=== PATIENT | male | born 1940 | race Caucasian/White ===

== ENCOUNTER 2017-04-09 11:24 | Inpatient (IN) | payer OTHER ==
[~2017-04-09] VITALS: Ht 182.9 cm; Wt 102.3 kg
[2017-04-09] MEDS ORDERED: KETOROLAC 15 MG INJ IV STA (11:42)
[2017-04-09] MEDS ORDERED: ONDANSETRON 4 MG INJ IV STA (11:42)
[2017-04-09] MEDS ORDERED: SOD CHLORIDE 0.9% 500 ML IV STA (11:42)
--- NOTE | 2017-04-09 12:20 | ERA ---
ER Documentation Chief Complaint Date/Time DATE: 04/09/17 TIME: 12:01 Chief Complaint R LOWER ABD PAIN SINCE LAST NIGHT. NO VOMITING, NAUSEA NO DYSURIA HPI This is a 77-year-old male with a history of hypertension in the past, recently stopped on blood pressure medicines as his blood pressure has normalized recently, type 2 diabetes, end-stage renal disease status post a recent left wrist AV fistula, scheduled for dialysis in the future, multiple previous kidney stones on the right side who is now presenting with acute onset sharp stabbing aching right flank and right lower quadrant abdominal pain beginning at 2 AM this morning with nausea. He rates it at 2/10 when he doesn't move but it increases with movement and palpation. The patient does still urinate at baseline, but he states that he has not urinated since the pain started. He has not noticed any blood in his urine. The patient does endorse heartburn as well, a burning sensation in his epigastrium. The patient does not endorse any left-sided chest pain or pain radiating to the arms or back or neck. The patient does not have a history of heart attack. The patient denies feeling sick otherwise. He has no fever or chills. He has no headache or vision changes. He has no trouble breathing. He has not had any changes to bowel movements. ROS All systems reviewed and are negative except as per history of present illness. Medications Home Meds Reported Medications Hydralazine Hcl* (Hydralazine Hcl*) 25 Mg Tab, 25 MG PO BID Y for ELEVATED BLOOD PRESSURE, #120 TAB 04/09/17 Aspirin (Low Dose Aspirin) 81 Mg Tablet.dr, 81 MG PO DAILY, #30 TAB 04/09/17 Terazosin Hcl* (Terazosin Hcl*) 10 Mg Capsule, 10 MG PO HS, CAP 04/09/17 Finasteride* (Finasteride*) 5 Mg Tablet, 5 MG PO DAILY, TAB 04/09/17 Allopurinol* (Allopurinol*) 300 Mg Tablet, 150 MG PO DAILY, TAB 04/09/17 Calcitriol* (Rocaltrol*) 0.25 Mcg Capsule, 0.25 MCG PO DAILY, CAP 04/09/17 Cholecalciferol (Vitamin D3) 5,000 Unit Tablet, 5000 UNIT PO DAILY, TAB 04/09/17 Pravastatin Sodium* (Pravastatin Sodium*) 80 Mg Tablet, 80 MG PO HS, TAB 04/09/17 Glipizide* (Glipizide*) 5 Mg Tablet, 5 MG PO AC BREAKFAST, TAB 04/09/17 Amlodipine Besylate* (Norvasc*) 5 Mg Tablet, 5 MG PO DAILY, TAB 04/09/17 Allergies Allergies: Coded Allergies: No Known Allergy (Unverified , 04/09/17) PMhx/Soc Hx Cardiac Disorders: Yes (HTN, HIGH CHOLETEROL, AFIB) Hx Miscellaneous Medical Probl: Yes (DM, DIALYSIS, KIDNEY STONE) Hx Alcohol Use: No Hx Substance Use: No Hx Tobacco Use: No Smoking Status: Never smoker FmHx Family History: diabetes Physical Exam Vitals Vital Signs Date Time Temp Pulse Resp B/P Pulse Ox O2 Delivery O2 Flow Rate FiO2 04/09/17 16:48 110 20 120/62 100 Room Air 04/09/17 16:00 103 20 108/66 100 Room Air 04/09/17 12:23 104 20 104/62 99 04/09/17 11:29 98.6 110 20 87/59 99 Physical Exam Const: NAD Head: Atraumatic Eyes: Normal Conjunctiva ENT: Normal External Ears, Nose and Mouth. Neck: Full range of motion..~ No meningismus. Resp: Clear to auscultation bilaterally Cardio: Regular rhythm, tachycardic. no murmurs Abd: Soft, non distended. RLQ tenderness. Normal bowel sounds Skin: No petechiae or rashes Back: No midline tenderness. right sided flank tenderness Ext: No cyanosis, or edema Neur: Awake and alert Psych: Normal Mood and Affect Result Diagram: 04/09/17 1805 04/09/17 1142 Results 24 hrs Laboratory Tests Test 04/09/17 11:42 04/09/17 18:05 White Blood Count 11.910^3/ul 12.410^3/ul Red Blood Count 2.5210^6/ul 2.3110^6/ul Hemoglobin 7.7g/dl 7.0g/dl Hematocrit 24.3% 21.5% Mean Corpuscular Volume 96.4fl 93.1fl Mean Corpuscular Hemoglobin 30.6pg 30.3pg Mean Corpuscular Hemoglobin Concent 31.7g/dl 32.6g/dl Red Cell Distribution Width 15.4% 15.6% Platelet Count 45554^3/UL 45172^3/UL Mean Platelet Volume 10.8fl 11.2fl Neutrophils % 92.1% 84.9% Lymphocytes % 3.1% 5.8% Monocytes % 4.1% 8.7% Eosinophils % 0.0% 0.0% Basophils % 0.1% 0.1% Nucleated Red Blood Cells % 0.0/100WBC 0.0/100WBC Neutrophils # (Manual) 11.010^3/ul 10.510^3/ul Lymphocytes # 0.410^3/ul 0.710^3/ul Monocytes # 0.510^3/ul 1.110^3/ul Eosinophils # 0.010^3/ul 0.010^3/ul Basophils # 0.010^3/ul 0.010^3/ul Nucleated Red Blood Cells # 0.010^3/ul 0.010^3/ul Sodium Level 145mmol/L Potassium Level 5.2mmol/L Chloride Level 109mmol/L Carbon Dioxide Level 14mmol/L Anion Gap 27 Blood Urea Nitrogen 81mg/dl Creatinine 5.62mg/dl Glucose Level 261mg/dl Lactic Acid Level 2.3mmol/L Calcium Level 9.5mg/dl Total Bilirubin 0.1mg/dl Direct Bilirubin 0.00mg/dl Indirect Bilirubin 0.1mg/dl Aspartate Amino Transf (AST/SGOT) 17IU/L Alanine Aminotransferase (ALT/SGPT) 33IU/L Alkaline Phosphatase 53IU/L Troponin I 0.709ng/ml Total Protein 5.6g/dl Albumin 3.1g/dl Globulin 2.50g/dl Albumin/Globulin Ratio 1.24 Lipase 88U/L Current Medications Medications (Trade) Dose Ordered Sig/Chantale Route PRN Reason Start Time Stop Time Status Last Admin Dose Admin Sodium Chloride (NS) 500 ml @ 500 mls/hr Q1H STAT IV 04/09/17 11:42 04/09/17 12:41 DC 04/09/17 12:11 Ondansetron HCl (Zofran Inj) 4 mg ONCE STAT IV 04/09/17 11:42 04/09/17 11:46 DC 04/09/17 12:11 Ketorolac Tromethamine 15 mg 15 mg ONCE STAT IV 04/09/17 11:42 04/09/17 11:46 DC 04/09/17 12:11 Sodium Chloride (NS) 1,000 ml @ 1,000 mls/hr Q1H ONCE IV 04/09/17 15:00 04/09/17 15:59 DC 04/09/17 15:03 Ondansetron HCl (Zofran Inj) 4 mg ER BRIDGE PRN IV NAUSEA AND/OR VOMITING 04/09/17 18:00 04/10/17 17:59 Acetaminophen (Tylenol Tab) 650 mg ER BRIDGE PRN PO MILD PAIN/FEVER 04/09/17 18:00 04/10/17 17:59 Procedures/MDM The patient's presenting with abdominal pain and requires further workup. He has a history of kidney stones and notes that this pain is similar to his past kidney stones. He does endorse having an ultrasound recently that was unremarkable to his kidneys. The patient's blood work was obtained and reviewed. The patient's CBC showed leukocytosis with shift. The patient is afebrile, and I am not convinced of a systemic infection at this time. That said, the patient was initially tachycardic and hypotensive. Blood culture and urine culture was sent off for further evaluation, but I do not intend to start antibiotics immediately. The patient received 1.5 L of normal saline in the emergency department. I did not want to give him 30ml/kg given his ESRD and oliguria. The patient is also anemic, which I am most concerned about. He does not have any symptoms of anemia and he denies any bleeding in his urine or stool. He has no other labs for comparison. He has CKD, which may be part of his anemia. The patient's CMP revealed an elevated CR between 5-6. This is reportedly around his baseline. He does have a mild hyperkalemia that does not need to be emergently treated. The patient also has a metabolic acidosis, which may be associated with his renal pathology. The patient's troponin was elevated, but the patient does not have signs of cardiac pathology. I do anticipate that this is related to his chronic kidney disease. He is also hyperglycemic at 261. I have lower suspicion for DKA given more likely etiologies of his anion gap, but this may be monitored in the hospital. He does have an anion gap metabolic acidosis, some of which may be attributed to a mildly elevated lactic acid. The patient's urinalysis was ordered, but the patient was unable to urinate for us in the emergency department and declined catheterization. EKG read by me: Rate/Rhythm: Regular rhythm, sinus tachycardia at 104 bpm Intervals: Normal [place]: Normal Impression:Sinus tachycardia, No evidence of ischemia or arrhythmia CT of the abdomen and pelvis was performed as the patient Reports that he has not been able to urinate since the pain started. He while he has a history of kidney stones, I am concerned that it could be resulting in obstruction. There is also still a possibility of appendicitis, as the patient has not had an appendectomy in the past. This will be evaluated as well. His CT was read by the radiologist as follows: PROCEDURE: CT Abdomen and Pelvis without contrast. CLINICAL INDICATION: Abdominal pain COMPARISON: None. FINDINGS: CT abdomen: There is mild bibasilar atelectasis. The heart size is normal. Small to mild pericardial effusion is noted. Coronary arterial calcifications are present. Gallbladder is surgically absent. Liver and biliary tree are unremarkable. Scattered pancreatic calcifications are noted, likely sequela of chronic pancreatitis. Indeterminate 17 mm cystic structure is seen arising from pancreatic head (3-75). No peripancreatic inflammatory stranding is identified. Spleen and adrenal glands are unremarkable. Right perinephric hematoma is identified, measuring approximately 12 x 7 x 7 cm (602-36). Right renal cyst is noted. There is moderate chronic atrophy of the left kidney. Indeterminate left renal cystic-appearing foci are noted. No urolithiasis or obstructive uropathy is identified. The stomach is mildly distended and fluid- filled, but otherwise grossly unremarkable. The aorta is of normal caliber. Aortic vascular calcifications are present. There is no retroperitoneal lymphadenopathy. The [place] hepatis region is clear. CT pelvis: No bowel obstruction, free intraperitoneal air or abscess is identified. The appendix is well visualized and normal. Scattered colonic diverticula are seen without diverticulitis. There is no colitis. Urinary bladder is grossly unremarkable. Prostate is moderately enlarged. No pelvic mass, free fluid or lymphadenopathy is identified. The surrounding osseous structures are remarkable for degenerative enthesopathy of the spine. No osteolytic or osteoblastic lesion is detected. IMPRESSION: 1. Right perinephric hematoma is identified, measuring approximately 12 cm in maximal dimension. Underlying right renal mass/neoplasm is not confidently excluded. Consider contrast enhanced CT for further evaluation, as clinically warranted. 2. There is chronic moderate atrophy of the left kidney. Indeterminate cystic- appearing foci are seen in the left kidney, incompletely evaluated without IV contrast. Again, contrast enhanced CT may be useful for further characterization. 3. Small to mild pericardial effusion is noted. 4. Coronary arterial and aortoiliac atherosclerotic calcifications are present. 5. Gallbladder is surgically absent. 6. Scattered pancreatic calcifications are seen, likely sequela of chronic pancreatitis. There is no CT evidence of acute pancreatitis. Indeterminate 17 mm cystic structure is seen in the pancreatic head - CT or MRI followup in 12 months is recommended to assess interval stability. 7. Scattered colonic diverticula are seen without diverticulitis. 8. Prostate is moderately enlarged - correlate with PSA level. .Alex Kaplan MD, MD Date Time Electronically viewed and signed by .Alex Kaplan MD, MD on 04/09/2017 14: 50 The patient was given IV fluids, Toradol, and Zofran with improvement of his symptoms and vitals. However, while the patient's blood pressure improved with a systolic greater than 100, the patient still mildly tachycardic. At this time I am concerned of symptomatic anemia, in the setting of a large right perinephric hematoma. In the setting of anemia and tachycardia, I am concerned of bleeding around his right kidney causing him pain that needs to be addressed. The patient would like to be transferred to [place] where all of his physicians and care has taken place in the past. In speaking with the [place] physician, he provided me the information that his previous hemoglobin was between 11 and 12 approximately 2 days ago. Given this information, in the setting of tachycardia and a possible bleeding source of a perinephric hematoma, I am worried about symptomatic anemia related to acute blood loss. An additional hgb was checked imemdiately prior to blood administration and found to be 7. I do not feel at this time that he is stable for transfer. As stated above, my suspicion is decreased for an infection given the acute onset of his symptoms and how he appears. That said, if he continues to decompensate despite blood resuscitation, or if his labs worsen, I would have a low threshold for initiating antibiotics. The patient's vital signs did improve after fluid resuscitation. He will be admitted to our hospital for further evaluation. He will need to be evaluated by nephrology or potentially surgery while in the hospital. This will be deferred to the hospital team. Departure Diagnosis: Primary Impression: Abdominal pain Qualified Code: R10.31 - Right lower quadrant abdominal pain Additional Impressions: Perinephric hematoma Anemia Qualified Code: D64.9 - Anemia, unspecified type Thrombocytopenia Chronic kidney disease Qualified Code: N18.5 - Stage 5 chronic kidney disease not on chronic dialysis Hyperkalemia Metabolic acidosis Condition: Serious SHANIA GAMINO MD Apr 09, 2017 12:12
[2017-04-09 12:33] LABS: ABNORMAL IP MESSAGE 1; BASOPHILS % 0.1 % (0.0-2.0); HEMATOCRIT 24.3 % (42.0-52.0); HEMOGLOBIN 7.7 g/dl (14.0-18.0); LYMPHOCYTES # 0.4 10^3/ul (0.8-2.9); LYMPHOCYTES % 3.1 % (15.0-51.0); MEAN CORPUSCULAR HEMOGLOBIN 30.6 pg (29.0-33.0); MEAN CORPUSCULAR HGB CONC 31.7 g/dl (32.0-37.0); MEAN CORPUSCULAR VOLUME 96.4 fl (82.0-101.0); MEAN PLATELET VOLUME 10.8 fl (7.4-10.4); MONOCYTE # 0.5 10^3/ul (0.3-0.9); MONOCYTES % 4.1 % (0.0-11.0); NEUTROPHILS % 92.1 % (39.0-77.0); PLATELET COUNT 133 10^3/UL (140-415); POSITIVE DIFF @See below; RED BLOOD COUNT 2.52 10^6/ul (4.70-6.10); RED CELL DISTRIBUTION WIDTH 15.4 % (11.5-14.5); WHITE BLOOD COUNT 11.9 10^3/ul (4.8-10.8)
[2017-04-09 12:57] LABS: ALBUMIN 3.1 g/dl (3.3-4.9); ALBUMIN/GLOBULIN RATIO 1.24; BILIRUBIN,INDIRECT 0.1 mg/dl (0-1.1); BILIRUBIN,TOTAL 0.1 mg/dl (0.2-1.3); CALCIUM 9.5 mg/dl (8.4-10.2); CREATININE 5.62 mg/dl (0.61-1.24); POTASSIUM 5.2 mmol/L (3.5-5.1); TOTAL PROTEIN 5.6 g/dl (6.1-8.1)
[2017-04-09 13:12] LABS: TROPONIN-I 0.709 ng/ml (0.00-0.12)
[2017-04-09] MEDS ORDERED: PRAV80TA27 PO (13:15)
[2017-04-09] MEDS ORDERED: GLIP5TAB13 PO (13:15)
[2017-04-09] MEDS ORDERED: AMLO5TAB4 PO (13:15)
[2017-04-09] MEDS ORDERED: CALC0.255 PO (13:16)
[2017-04-09] MEDS ORDERED: CHOL500010 PO (13:16)
[2017-04-09] MEDS ORDERED: TERA10CA42 PO (13:17)
[2017-04-09] MEDS ORDERED: ALLO300T2 PO (13:17)
[2017-04-09] MEDS ORDERED: FINA5TAB4 PO (13:17)
[2017-04-09] MEDS ORDERED: ASPI-664 PO (13:18)
[2017-04-09] MEDS ORDERED: HYDR-3671 PO (13:18)
--- NOTE | 2017-04-09 14:51 | RADRPT ---
PROCEDURE: CT Abdomen and Pelvis without contrast. CLINICAL INDICATION: Abdominal pain TECHNIQUE: CT of the abdomen and pelvis was performed on a multi-detector scanner without IV contr ast. Coronal and sagittal images were reformatted from the axial data set. One or more of the foll owing dose reduction techniques were used: automated exposure control, adjustment of the mA and/or k V according to patient size, use of iterative reconstruction technique. CTDI = 17.86 mGy. DLP = 133 7.25 mGy-cm. COMPARISON: None. FINDINGS: CT abdomen: There is mild bibasilar atelectasis. The heart size is normal. Small to mild pericardial effusion is noted. Coronary arterial calcifications are present. Gallbladder is surgically absent. Liver a nd biliary tree are unremarkable. Scattered pancreatic calcifications are noted, likely sequela of chronic pancreatitis. Indeterminate 17 mm cystic structure is seen arising from pancreatic head (3- 75). No peripancreatic inflammatory stranding is identified. Spleen and adrenal glands are unremar kable. Right perinephric hematoma is identified, measuring approximately 12 x 7 x 7 cm (602-36). Right ian al cyst is noted. There is moderate chronic atrophy of the left kidney. Indeterminate left renal c ystic-appearing foci are noted. No urolithiasis or obstructive uropathy is identified. The stomach is mildly distended and fluid-filled, but otherwise grossly unremarkable. The aorta is of normal caliber. Aortic vascular calcifications are present. There is no retroperit mendez lymphadenopathy. The [place] hepatis region is clear. CT pelvis: No bowel obstruction, free intraperitoneal air or abscess is identified. The appendix is well visua lized and normal. Scattered colonic diverticula are seen without diverticulitis. There is no colit is. Urinary bladder is grossly unremarkable. Prostate is moderately enlarged. No pelvic mass, christi e fluid or lymphadenopathy is identified. The surrounding osseous structures are remarkable for degenerative enthesopathy of the spine. No os teolytic or osteoblastic lesion is detected. IMPRESSION: 1. Right perinephric hematoma is identified, measuring approximately 12 cm in maximal dimension. U nderlying right renal mass/neoplasm is not confidently excluded. Consider contrast enhanced CT for further evaluation, as clinically warranted. 2. There is chronic moderate atrophy of the left kidney. Indeterminate cystic-appearing foci are s een in the left kidney, incompletely evaluated without IV contrast. Again, contrast enhanced CT may be useful for further characterization. 3. Small to mild pericardial effusion is noted. 4. Coronary arterial and aortoiliac atherosclerotic calcifications are present. 5. Gallbladder is surgically absent. 6. Scattered pancreatic calcifications are seen, likely sequela of chronic pancreatitis. There is no CT evidence of acute pancreatitis. Indeterminate 17 mm cystic structure is seen in the pancreati c head - CT or MRI followup in 12 months is recommended to assess interval stability. 7. Scattered colonic diverticula are seen without diverticulitis. 8. Prostate is moderately enlarged - correlate with PSA level. RPTAT: HH .Alex Kaplan MD, MD Date Time Electronically viewed and signed by .Aelx Kaplan MD, on 04/09/2017 14:50 .R/
[2017-04-09] MEDS ORDERED: SOD CHLORIDE 0.9% 1,000 ML IV ONE (15:00)
[2017-04-09] MEDS ORDERED: ACETAMINOPHEN 325 MG TAB PO PRN (18:00)
[2017-04-09] MEDS ORDERED: ONDANSETRON 4 MG INJ IV PRN ×2 (18:00→20:30)
[2017-04-09 18:22] LABS: BASOPHILS % 0.1 % (0.0-2.0); HEMATOCRIT 21.5 % (42.0-52.0); LYMPHOCYTES # 0.7 10^3/ul (0.8-2.9); LYMPHOCYTES % 5.8 % (15.0-51.0); MEAN CORPUSCULAR HEMOGLOBIN 30.3 pg (29.0-33.0); MEAN CORPUSCULAR HGB CONC 32.6 g/dl (32.0-37.0); MEAN CORPUSCULAR VOLUME 93.1 fl (82.0-101.0); MEAN PLATELET VOLUME 11.2 fl (7.4-10.4); MONOCYTE # 1.1 10^3/ul (0.3-0.9); MONOCYTES % 8.7 % (0.0-11.0); NEUTROPHILS % 84.9 % (39.0-77.0); PLATELET COUNT 126 10^3/UL (140-415); RED BLOOD COUNT 2.31 10^6/ul (4.70-6.10); RED CELL DISTRIBUTION WIDTH 15.6 % (11.5-14.5); WHITE BLOOD COUNT 12.4 10^3/ul (4.8-10.8)
[2017-04-09 19:45] VITALS: BP 110/57; RESP 18
[2017-04-09 19:50] VITALS: Ht 182.9 cm; Wt 102.3 kg
[2017-04-09 20:23] VITALS: PULSE 109; PULSE 127
[2017-04-09] MEDS ORDERED: morphine 2 MG INJ IV PRN (20:30)
[2017-04-09] MEDS ORDERED: hydrALAzine 20 MG INJ IV PRN (20:30)
[2017-04-09] MEDS ORDERED: DEXTROSE 50% 50 ML SYRINGE IV PRN ×2 (21:30)
[2017-04-09] MEDS ORDERED: GLUCAGON 1 MG INJ IM PRN (21:30)
[2017-04-09] MEDS ORDERED: GLUCOSE GEL 15 GRAM TUBE PO PRN ×2 (21:30)
[2017-04-09] MEDS ORDERED: GLUCOSE GEL 15 GRAM TUBE BUCCAL PRN (21:30)
[2017-04-09] MEDS: ATORVASTATIN 40 MG TAB PO SCH (22:44)
[2017-04-09] MEDS: FINASTERIDE 5 MG TAB PO SCH (22:45)
[2017-04-09] MEDS: INSULIN ASPART [NOVOLOG] 3 ML PEN SC SCH (22:55)
[2017-04-09] MEDS: INSULIN GLARGINE [LANtus] 3 ML PEN SC SCH (22:56)
[2017-04-10] VITALS (14 sets, daily range): BP systolic 115–151; BP diastolic 60–75; PULSE 94–181; RESP 19–20
[2017-04-10] MEDS ORDERED: ACCU-CHEK XX SCH (02:00)
[2017-04-10] MEDS: ACCU-CHEK XX SCH ×2 (02:12→23:46)
[2017-04-10] MEDS ORDERED: ACETAMINOPHEN 325 MG TAB PO ONE ×2 (06:45→08:30)
[2017-04-10] MEDS ORDERED: DIPHENHYDRAMINE 25 MG CAP PO ONE (06:45)
--- NOTE | 2017-04-10 07:06 | HP ---
Date/Time of Note Date/Time of Note DATE: 04/10/17 TIME: 06:51 Assessment/Plan VTE Prophylaxis VTE Prophylaxis Intervention: SCD's Lines/Catheters IV [facility] Urinary Cath still in place: No Assessment/Plan Assessment/Plan 1. Symptomatic anemia: No definitive clear etiology, but could be from the right perinephric hematoma -will transfuse PRBCs -Follow-up H&H closely -Check FOBT -GI consult 2. Right perinephric hematoma -Urology and nephrology consult -Per radiology, we need to get a CT with IV contrast since a mass/neoplasm is not excluded, however given his kidney function, I will await until he is further evaluated before obtaining one now 3. End-stage renal disease -Patient has an AV fistula but dialysis has not been initiated yet -will place a nephrology consult 4. Positive troponin: Likely demand ischemia as a result of anemia -Trend troponin -2D echo and cardiology consult 5. Type 2 diabetes -Check A1c -Insulin while in-house 6. History of hypertension: Actually presented with hypotension -Hold home medications for now 7. Dyslipidemia -Continue statin 8. BPH -Continue home med HPI/ROS Admit Date/Time Admit Date/Time Apr 09, 2017 at 17:52 Hx of Present Illness This is a 77-year-old male with a history of hypertension, type 2 diabetes, dyslipidemia, BPH, end-stage renal disease, awaiting initiation of dialysis. Patient presented to the ER complaining of right lower quadrant abdominal pain and generalized weakness. Pain started about 3 days ago and has been progressively getting worse. He denied chest pain, shortness of breath, nausea/ vomiting, hematemesis, dark stool or bright red blood per rectum. When he presented to the ER, he was hypotensive with blood pressure of 87/59, heart rate 110. Labs shows a hemoglobin of 7.7, WBC almost 12,000, BUN 81, creatinine 5.62, glucose 261, lactic acid 2.3, potassium 5.2. His first troponin is elevated at 0.709. EKG was no ST-T wave abnormalities. PMH/Family/Social Social History Smoking Status: Never smoker Exam/Review of Systems Vital Signs Vitals Vital Signs Date Time Temp Pulse Resp B/P Pulse Ox O2 Delivery O2 Flow Rate FiO2 04/10/17 05:55 99.7 112 20 119/65 96 Room Air Exam Constitutional: other (Sleepy but arousable) Head: atraumatic, normocephalic Eyes: EOMI, PERRL Respiratory: clear to auscultation, normal air movement Cardiovascular: other (Tachycardic with regular rhythm) Gastrointestinal: other (Tenderness in the right side of the abdomen), soft Extremities: normal pulses Labs Result Diagram: 04/09/17 1805 04/09/17 1142 Medications Medications Current Medications Allopurinol (Zyloprim) 150 mg DAILY PO ; Start 04/10/17 at 09:00 Amlodipine Besylate (Norvasc) 5 mg DAILY PO ; Start 04/10/17 at 09:00 Aspirin (Halfprin) 81 mg DAILY PO ; Start 04/10/17 at 09:00 Calcitriol (Rocaltrol) 0.25 mcg DAILY PO ; Start 04/10/17 at 09:00 Cholecalciferol (Vitamin D) 5,000 unit DAILY PO ; Start 04/10/17 at 09:00 Finasteride (Proscar) 5 mg DAILY PO Last administered on 04/09/17 22:45; Admin Dose 5 MG; Start 04/09/17 at 20:30 Terazosin HCl (Hytrin) 10 mg HS PO ; Start 04/10/17 at 21:00 Atorvastatin Calcium (Lipitor) 40 mg HS PO Last administered on 04/09/17 22:44 ; Admin Dose 40 MG; Start 04/09/17 at 21:00 Hydralazine HCl (Apresoline) 10 mg Q4H PRN IV ELEVATED BLOOD PRESSURE; Start at 20:30 Ondansetron HCl (Zofran Inj) 4 mg Q6H PRN IV NAUSEA AND/OR VOMITING; Start at 20:30 Morphine Sulfate (morphine) 2 mg Q4H PRN IV PAIN; Start 04/09/17 at 20:30 Insulin Glargine (Lantus) 10 unit HS SC Last administered on 04/09/17 22:56; Admin Dose 10 UNIT; Start 04/09/17 at 21:00 Diagnostic Test (Pha) (Accu-Chek) 1 ea 02 XX Last administered on 04/10/17 02: 12; Admin Dose 1 EA; Start 04/10/17 at 02:00 Miscellaneous Information 1 ea NOTE XX ; Start 04/09/17 at 21:30 Glucose (Glutose) 15 gm Q15M PRN PO DECREASED GLUCOSE; Start 04/09/17 at 21:30 Glucose (Glutose) 22.5 gm Q15M PRN PO DECREASED GLUCOSE; Start 04/09/17 at 21: 30 Dextrose (D50w Syringe) 25 ml Q15M PRN IV DECREASED GLUCOSE; Start 04/09/17 at 21:30 Dextrose (D50w Syringe) 50 ml Q15M PRN IV DECREASED GLUCOSE; Start 04/09/17 at 21:30 Glucagon (Glucagen) 1 mg Q15M PRN IM DECREASED GLUCOSE; Start 04/09/17 at 21:30 Glucose (Glutose) 15 gm Q15M PRN BUCCAL DECREASED GLUCOSE; Start 04/09/17 at 21 :30 DRAGAN BURGOS MD Apr 10, 2017 07:02
[2017-04-10] MEDS: CHOLECALCIFEROL 1,000 UNIT TAB PO SCH (08:25)
[2017-04-10] MEDS: CALCITRIOL 0.25 MCG CAP PO SCH (08:25)
[2017-04-10] MEDS: FINASTERIDE 5 MG TAB PO SCH (08:25)
[2017-04-10] MEDS: AMLODIPINE 5 MG TAB PO SCH (08:25)
[2017-04-10] MEDS: ALLOPURINOL 300 MG TAB PO SCH (08:25)
[2017-04-10] MEDS: INSULIN ASPART [NOVOLOG] 3 ML PEN SC SCH ×4 (08:26→20:38)
[2017-04-10] MEDS ORDERED: ASPIRIN (EC) 81 MG TAB PO SCH (09:00)
[2017-04-10] MEDS ORDERED: ACETAMINOPHEN 325 MG TAB PO PRN (13:30)
[2017-04-10 17:41] LABS: CALCIUM 9.2 mg/dl (8.4-10.2); CREATININE 6.93 mg/dl (0.61-1.24); POTASSIUM 5.1 mmol/L (3.5-5.1)
--- NOTE | 2017-04-10 18:58 | CONS ---
DATE OF ADMISSION: 04/09/2017 DATE OF CONSULTATION: 04/10/2017 REASON FOR CONSULTATION: Chronic kidney disease. HISTORY OF PRESENT ILLNESS: This is a 77-year-old male with a past medical history of chronic kidney disease stage 5, history of hypertension, diabetes, BPH, who presented to the outpatient emergency room with lower quadrant pain and weakness. The patient stated the symptoms began 3 days ago, have progressively gotten worse. Denies any chest pain. No fevers, chills, nausea, or vomiting. In the emergency room, the patient noted to be hypotensive, systolic pressure is 87/59. Hemoglobin 7.7, white count 12, a BUN of 81, creatinine 5.62. The patient was admitted to telemetry. Typed and crossed 2 units of PRBC and transfused. Upon my evaluation of the patient, he states that he has got underlying chronic kidney disease. He is awaiting to initiate dialysis once his fistula matures. The patient is followed by [facility] for his underlying kidney disease. PAST MEDICAL HISTORY: History of chronic kidney disease stage 5, end-stage renal disease, history of BPH, dyslipidemia, diabetes. PAST SURGICAL HISTORY: Status post AV fistula. FAMILY HISTORY: Noncontributory. SOCIAL HISTORY: Does not drink, smoke, or do drugs. MEDICATION: Reviewed. REVIEW OF SYSTEMS: Fourteen point review of systems conducted. Pertinent positives in HPI, otherwise negative. PHYSICAL EXAMINATION: VITAL SIGNS: Blood pressure 151/75, respiration 19, pulse 96, temperature 97.8. HEENT: Head is normocephalic. NECK: Supple. HEART: Regular rate. LUNGS: Diminished breath sounds at the base. ABDOMEN: Soft, nontender to palpation. No rebound or guarding. EXTREMITIES: Negative for clubbing, cyanosis. No edema. DERMATOLOGIC: Clean. No rashes. MUSCULOSKELETAL: No joint effusion. NEUROLOGIC: No focal deficits. LABORATORY DATA: Sodium 145, potassium 5.2, BUN 81, creatinine 5.62. White count 12.4, hemoglobin 10.9, hematocrit 21.5, platelet count 126. IMPRESSION AND PLAN: This is a 77-year-old male presents with: 1. Chronic kidney disease, stage 5/end stage renal disease. The patient denies any overt uremic symptoms. The patient, however, has not had any urinary output in the last 24 hours. I did discuss with the patient if there his renal function should worsen, or if hypokalemia does not resolve and the patient should remain aneuric, that we would have to initiate hemodialysis. He has requested for me to speak with his primary shallot packer at [facility]. 2. Hypokalemia, mild. The patient was placed on a low potassium diet. Will repeat a potassium level. 3. Metabolic acidosis secondary to chronic kidney disease. I will check an ABG. See if patient is compensated. Consider starting bicarbonate drip. 4. Anemia. The patient is status post blood transfusion. Continue to monitor H and H levels. Will give Epogen as needed. 5. Mineral bone disorder. Monitor calcium and phosphorus levels. 6. Lactic acidosis. Unclear etiology, possibly serous, we will repeat lactic acid levels. 7. Elevated troponin. Possible demand ischemia. Continue to monitor. Follow up with Cardiology. 8. Diabetes. Continue Accu-Cheks and sliding scale. Thank you, Dr. Kc, for this interesting consult. It will be a pleasure to follow the patient with you throughout the hospital course. Dictated By: Yousuf Wagoner DO /milton/stephan /Document#: [id number]
--- NOTE | 2017-04-10 19:17 | PN ---
Date/Time of Note Date/Time of Note DATE: 04/10/17 TIME: 19:12 Assessment/Plan VTE Prophylaxis VTE Prophylaxis Intervention: contraindicated VTE Contraindication Reason: bleeding Lines/Catheters IV Catheter Type (from Nrsg): Saline Lock Urinary Cath still in place: No Assessment/Plan Chief Complaint/Hosp Course S- anuric? + n/v. no fever/hematuria. poor po fluid intake later? admitted at ~1month ago [dced diuretics/hydrated]. no dyspnea O- vss PE no pallor/jvd reg ctab bs+; mild tender rlq/flank. no local warmth no edema; lt avf c/d/i A/P 1. Flank Pain -perinephric hematoma. Ruptured cyst? H/o Bx last June @ . Check h/h transfuse prn; no lovenox. 2. Dm/Htn/CKD 3. BPH? 4. Oliguria- fluid challenge 5. False + troponin Problems: Exam/Review of Systems Vital Signs Vitals Vital Signs Date Time Temp Pulse Resp B/P Pulse Ox O2 Delivery O2 Flow Rate FiO2 04/10/17 16:23 94 04/10/17 16:00 97.8 19 151/75 94 04/10/17 05:55 Room Air Intake and Output 04/09/17 04/09/17 04/10/17 14:59 22:59 06:59 Intake Total 300 ml Balance 300 ml Results Result Diagram: 04/09/17 1805 04/10/17 1550 Results 24 hrs Laboratory Tests Test 04/09/17 22:51 04/10/17 02:11 04/10/17 08:14 04/10/17 09:36 Bedside Glucose 181 165 142 Hemoglobin A1c 6.0 H Troponin I 2.050 *H Test 04/10/17 12:26 04/10/17 15:26 04/10/17 15:50 04/10/17 17:34 Bedside Glucose 155 141 Troponin I 1.950 *H Sodium Level 142 Potassium Level 5.1 Chloride Level 109 Carbon Dioxide Level 16 L Anion Gap 22 H Blood Urea Nitrogen 98 H Creatinine 6.93 H Glucose Level 119 # Calcium Level 9.2 Medications Medications Current Medications Allopurinol (Zyloprim) 150 mg DAILY PO Last administered on 04/10/17t 08:25; Admin Dose 150 MG; Start 04/10/17 at 09:00 Amlodipine Besylate (Norvasc) 5 mg DAILY PO Last administered on 04/10/17 08: 25; Admin Dose 5 MG; Start 04/10/17 at 09:00 Aspirin (Halfprin) 81 mg DAILY PO Last administered on 04/10/17 08:25; Admin Dose 81 MG; Start 04/10/17 at 09:00 Calcitriol (Rocaltrol) 0.25 mcg DAILY PO Last administered on 04/10/17 08:25; Admin Dose 0.25 MCG; Start 04/10/17 at 09:00 Cholecalciferol (Vitamin D) 5,000 unit DAILY PO Last administered on 04/10/17 08:25; Admin Dose 5,000 UNIT; Start 04/10/17 at 09:00 Finasteride (Proscar) 5 mg DAILY PO Last administered on 04/10/17 08:25; Admin Dose 5 MG; Start 04/09/17 at 20:30 Terazosin HCl (Hytrin) 10 mg HS PO ; Start 04/10/17 at 21:00 Atorvastatin Calcium (Lipitor) 40 mg HS PO Last administered on 04/09/17 22:44 ; Admin Dose 40 MG; Start 04/09/17 at 21:00 Hydralazine HCl (Apresoline) 10 mg Q4H PRN IV ELEVATED BLOOD PRESSURE; Start at 20:30 Ondansetron HCl (Zofran Inj) 4 mg Q6H PRN IV NAUSEA AND/OR VOMITING; Start at 20:30 Morphine Sulfate (morphine) 2 mg Q4H PRN IV PAIN; Start 04/09/17 at 20:30 Insulin Glargine (Lantus) 10 unit HS SC Last administered on 04/09/17 22:56; Admin Dose 10 UNIT; Start 04/09/17 at 21:00 Diagnostic Test (Pha) (Accu-Chek) 1 ea 02 XX Last administered on 04/10/17 02: 12; Admin Dose 1 EA; Start 04/10/17 at 02:00 Miscellaneous Information 1 ea NOTE XX ; Start 04/09/17 at 21:30 Glucose (Glutose) 15 gm Q15M PRN PO DECREASED GLUCOSE; Start 04/09/17 at 21:30 Glucose (Glutose) 22.5 gm Q15M PRN PO DECREASED GLUCOSE; Start 04/09/17 at 21: 30 Dextrose (D50w Syringe) 25 ml Q15M PRN IV DECREASED GLUCOSE; Start 04/09/17 at 21:30 Dextrose (D50w Syringe) 50 ml Q15M PRN IV DECREASED GLUCOSE; Start 04/09/17 at 21:30 Glucagon (Glucagen) 1 mg Q15M PRN IM DECREASED GLUCOSE; Start 04/09/17 at 21:30 Glucose (Glutose) 15 gm Q15M PRN BUCCAL DECREASED GLUCOSE; Start 04/09/17 at 21 :30 Acetaminophen 650 mg 650 mg Q4H PRN PO PAIN AND OR ELEVATED TEMP; Start at 13:30 Sodium Chloride 250 ml @ 250 mls/hr Q1H ONCE IV ; Start 04/10/17 at 19:30; Stop 04/10/17 at 20:29; Status UNV Sodium Chloride (NS) 1,000 ml @ 50 mls/hr Q20H IV ; Start 04/10/17 at 20:00; Status UNV CHAUNCEY WILBURN MD Apr 10, 2017 19:17
[2017-04-10] MEDS ORDERED: SOD CHLORIDE 0.9% 250 ML IV ONE (19:30)
[2017-04-10] MEDS: ATORVASTATIN 40 MG TAB PO SCH (20:32)
[2017-04-10] MEDS: TERAZOSIN 5 MG CAP PO SCH (20:33)
[2017-04-10] MEDS: SOD CHLORIDE 0.9% 1,000 ML IV SCH (20:35)
[2017-04-10] MEDS: INSULIN GLARGINE [LANtus] 3 ML PEN SC SCH (20:37)
[2017-04-11] VITALS (12 sets, daily range): BP systolic 121–164; BP diastolic 63–74; PULSE 89–104; RESP 18–22
--- NOTE | 2017-04-11 07:50 | RADRPT ---
PROCEDURE: XR Chest. CLINICAL INDICATION: Shortness of breath TECHNIQUE: A single AP view of the chest was obtained. COMPARISON: None. FINDINGS: Lung volumes are low. No focal airspace opacification, pleural effusion or pneumothorax is seen. T he cardiomediastinal silhouette is mildly enlarged. Calcifications are seen within the aortic arch. The osseous structures demonstrate senescent changes. IMPRESSION: 1. Low lung volumes. 2. Mild cardiomegaly and aortic atherosclerosis. RPTAT: HH .Juli Pope MD, MD Date Time Electronically viewed and signed by .Juli Pope MD, MD on 04/11/2017 07:50 .G/
[2017-04-11] MEDS: INSULIN ASPART [NOVOLOG] 3 ML PEN SC SCH ×4 (08:00→21:00)
[2017-04-11 08:11] LABS: BASOPHILS % 0.1 % (0.0-2.0); EOSINOPHILS # 0.1 10^3/ul (0.0-0.5); EOSINOPHILS % 0.8 % (0.0-7.0); HEMOGLOBIN 7.3 g/dl (14.0-18.0); LYMPHOCYTES # 0.8 10^3/ul (0.8-2.9); LYMPHOCYTES % 7.7 % (15.0-51.0); MEAN CORPUSCULAR HEMOGLOBIN 30.2 pg (29.0-33.0); MEAN CORPUSCULAR HGB CONC 33.2 g/dl (32.0-37.0); MEAN CORPUSCULAR VOLUME 90.9 fl (82.0-101.0); MEAN PLATELET VOLUME 10.4 fl (7.4-10.4); MONOCYTES % 10.5 % (0.0-11.0); NEUTROPHILS % 80.3 % (39.0-77.0); PLATELET COUNT 107 10^3/UL (140-415); RED BLOOD COUNT 2.42 10^6/ul (4.70-6.10); RED CELL DISTRIBUTION WIDTH 15.8 % (11.5-14.5); WHITE BLOOD COUNT 9.8 10^3/ul (4.8-10.8)
[2017-04-11 08:38] LABS: CALCIUM 8.8 mg/dl (8.4-10.2); CREATININE 6.59 mg/dl (0.61-1.24); MAGNESIUM 1.9 mg/dl (1.7-2.5); PHOSPHORUS 5.6 mg/dl (2.5-4.9); POTASSIUM 4.8 mmol/L (3.5-5.1)
[2017-04-11] MEDS: ALLOPURINOL 300 MG TAB PO SCH (09:08)
[2017-04-11] MEDS: FINASTERIDE 5 MG TAB PO SCH (09:08)
[2017-04-11] MEDS: CALCITRIOL 0.25 MCG CAP PO SCH (09:09)
[2017-04-11] MEDS: CHOLECALCIFEROL 1,000 UNIT TAB PO SCH (09:09)
[2017-04-11] MEDS: AMLODIPINE 5 MG TAB PO SCH (09:10)
[2017-04-11] MEDS ORDERED: EPOETIN 4000 UNITS/1 ML INJ (ESRD) SC ONE (10:00)
--- NOTE | 2017-04-11 11:14 | PN ---
DATE: SUBJECTIVE DATA: I attempted yesterday to contact patient's primary tool pusher, Dr. Echavarria at [facility]. I was unable to reach him. I will attempt again today. The patient overnight had no acute events. He did urinate 800 cc this morning. OBJECTIVE DATA: VITAL SIGNS: Blood pressure 140/74, respirations 20, pulse 101, temperature 98.6. HEENT: Head is normocephalic. NECK: Supple. HEART: Regular rate. LUNGS: Diminished breath sounds at the base. ABDOMEN: Soft, nontender to palpation. No rebound or guarding. EXTREMITIES: Negative for clubbing, cyanosis. Trace edema. DERMATOLOGIC: No rashes. MUSCULOSKELETAL: No joint effusion. NEUROLOGIC: No change in exam. MEDICATIONS: Reviewed. LABORATORY AND DIAGNOSTIC DATA: White count 9.9, hemoglobin 10.3, hematocrit of 28.9, platelet count 107, sodium 140, potassium 4.8, BUN 106, creatinine 6.59, bicarb is 18. ASSESSMENT AND PLAN: 1. Nonoliguric acute kidney injury on top of chronic kidney disease, stage IV, end stage renal disease. Etiology is current acute kidney injury secondary to hemodynamics. Please note, I attempted to contact the patient's primary tool pusher Dr. Echavarria patient on however was unable to reach him. Will attempt again today. The patient's baseline renal function is unknown, although per patient he was nearing dialysis. At this point, there is no urgent need for hemodialysis. This patient has no overt uremic signs and symptoms. We will continue to monitor closely. 2. Hypokalemia, mild, improved. Continue to monitor. 3. Metabolic acidosis secondary to chronic kidney disease. Will consider starting the patient on sodium bicarb. Will check an ABG and see if patient is appropriately compensated. 4. Anemia. The patient is status post blood transfusion. Will continue Epogen. 5. Mineral bone disorder. Continue to monitor calcium and phosphorus levels. 6. Lactic acidosis. Etiology is unclear. Possibly due to and/or sepsis. 7. Elevated troponin, likely demand ischemia. Continue to monitor. 8. Diabetes. Continue Accu-Cheks and sliding scale. 9. Right perinephric hematoma. Patient status post CT scan which showed the possibility of right renal mass, neoplasm not excluded. Will continue to monitor. The patient is status post blood transfusion. Consider giving a course of DDAVP. Dictated By: Yousuf Wagoner DO /[email or web address] /Document#: [id number]
[2017-04-11] MEDS: SOD CHLORIDE 0.9% 1,000 ML IV SCH (16:54)
--- NOTE | 2017-04-11 19:23 | PN ---
Date/Time of Note Date/Time of Note DATE: 04/11/17 TIME: 19:21 Assessment/Plan VTE Prophylaxis VTE Prophylaxis Intervention: contraindicated, heparin, LMWH VTE Contraindication Reason: bleeding (hematoma) Lines/Catheters IV Catheter Type (from Nrsg): Saline Lock Urinary Cath still in place: No Assessment/Plan Chief Complaint/Hosp Course S- 04/10 anuric? + n/v. no fever/hematuria. poor po fluid intake later? admitted at ~1month ago [dced diuretics/hydrated]. no dyspnea 04/11 still has some right flank pain. No hematuria dyspnea fever. updated. O- vss PE no pallor/jvd reg ctab bs+; mild tender rlq/flank. no local warmth no edema; lt avf c/d/i A/P 1. Flank Pain -perinephric hematoma. Ruptured cyst? H/o Bx last June @ . Check h/h, transfuse prn; no lovenox. P imaging soon. 2. Dm/Htn/CKD 3. BPH? 4. Oliguria- fluid challenge 5. False + troponin Problems: Exam/Review of Systems Vital Signs Vitals Vital Signs Date Time Temp Pulse Resp B/P Pulse Ox O2 Delivery O2 Flow Rate FiO2 04/11/17 16:20 92 04/11/17 16:20 98.6 19 125/64 98 04/10/17 05:55 Room Air Intake and Output 04/10/17 04/10/17 04/11/17 15:00 23:00 07:00 Intake Total 1180 ml 625 ml Output Total 200 ml Balance 1180 ml 425 ml Results Result Diagram: 04/11/17 0749 04/11/17 0749 Results 24 hrs Laboratory Tests Test 04/10/17 20:08 04/10/17 23:00 04/11/17 07:49 04/11/17 08:45 Bedside Glucose 129 125 Urine Random Creatinine 196.51 Urine Random Sodium < 13 L Urine Total Protein 108.0 H White Blood Count 9.8 # Red Blood Count 2.42 L Hemoglobin 7.3 L Hematocrit 22.0 L Mean Corpuscular Volume 90.9 Mean Corpuscular Hemoglobin 30.2 Mean Corpuscular Hemoglobin Concent 33.2 Red Cell Distribution Width 15.8 H Platelet Count 107 L Mean Platelet Volume 10.4 Neutrophils % 80.3 H Lymphocytes % 7.7 L Monocytes % 10.5 Eosinophils % 0.8 Basophils % 0.1 Nucleated Red Blood Cells % 0.0 Neutrophils # (Manual) 7.8 H Lymphocytes # 0.8 Monocytes # 1.0 H Eosinophils # 0.1 Basophils # 0.0 Nucleated Red Blood Cells # 0.0 Sodium Level 140 Potassium Level 4.8 Chloride Level 109 Carbon Dioxide Level 18 L Anion Gap 18 H Blood Urea Nitrogen 106 H Creatinine 6.59 H Glucose Level 105 Calcium Level 8.8 Phosphorus Level 5.6 H Magnesium Level 1.9 Random Cortisol 21.8 Test 04/11/17 12:05 04/11/17 18:05 Bedside Glucose 127 176 Medications Medications Current Medications Allopurinol (Zyloprim) 150 mg DAILY PO Last administered on 04/11/17 09:08; Admin Dose 150 MG; Start 04/10/17 at 09:00 Amlodipine Besylate (Norvasc) 5 mg DAILY PO Last administered on 04/11/17 09: 10; Admin Dose 5 MG; Start 04/10/17 at 09:00 Calcitriol (Rocaltrol) 0.25 mcg DAILY PO Last administered on 04/11/17 09:09; Admin Dose 0.25 MCG; Start 04/10/17 at 09:00 Cholecalciferol (Vitamin D) 5,000 unit DAILY PO Last administered on 04/11/17 09:09; Admin Dose 5,000 UNIT; Start 04/10/17 at 09:00 Finasteride (Proscar) 5 mg DAILY PO Last administered on 04/11/17 09:08; Admin Dose 5 MG; Start 04/09/17 at 20:30 Terazosin HCl (Hytrin) 10 mg HS PO Last administered on 04/10/17 20:33; Admin Dose 10 MG; Start 04/10/17 at 21:00 Atorvastatin Calcium (Lipitor) 40 mg HS PO Last administered on 04/10/17 20:32 ; Admin Dose 40 MG; Start 04/09/17 at 21:00 Hydralazine HCl (Apresoline) 10 mg Q4H PRN IV ELEVATED BLOOD PRESSURE; Start at 20:30 Ondansetron HCl (Zofran Inj) 4 mg Q6H PRN IV NAUSEA AND/OR VOMITING; Start at 20:30 Morphine Sulfate (morphine) 2 mg Q4H PRN IV PAIN; Start 04/09/17 at 20:30 Insulin Glargine (Lantus) 10 unit HS SC Last administered on 04/10/17 20:37; Admin Dose 10 UNIT; Start 04/09/17 at 21:00 Diagnostic Test (Pha) (Accu-Chek) 1 ea 02 XX Last administered on 04/10/17 02: 12; Admin Dose 1 EA; Start 04/10/17 at 02:00 Miscellaneous Information 1 ea NOTE XX ; Start 04/09/17 at 21:30 Glucose (Glutose) 15 gm Q15M PRN PO DECREASED GLUCOSE; Start 04/09/17 at 21:30 Glucose (Glutose) 22.5 gm Q15M PRN PO DECREASED GLUCOSE; Start 04/09/17 at 21: 30 Dextrose (D50w Syringe) 25 ml Q15M PRN IV DECREASED GLUCOSE; Start 04/09/17 at 21:30 Dextrose (D50w Syringe) 50 ml Q15M PRN IV DECREASED GLUCOSE; Start 04/09/17 at 21:30 Glucagon (Glucagen) 1 mg Q15M PRN IM DECREASED GLUCOSE; Start 04/09/17 at 21:30 Glucose (Glutose) 15 gm Q15M PRN BUCCAL DECREASED GLUCOSE; Start 04/09/17 at 21 :30 Acetaminophen 650 mg 650 mg Q4H PRN PO PAIN AND OR ELEVATED TEMP; Start at 13:30 Sodium Chloride (NS) 1,000 ml @ 50 mls/hr Q20H IV Last administered on 16:54; Admin Dose 50 MLS/HR; Start 04/10/17 at 20:00 CHAUNCEY WILBURN MD Apr 11, 2017 19:23
--- NOTE | 2017-04-11 19:29 | DS ---
Date/Time of Note Date/Time of Note DATE: 04/11/17 TIME: 19:23 Discharge Summary Admission/Discharge Info Admit Date/Time Apr 09, 2017 at 17:52 Discharge Date/Time Discharge Diagnosis Perinephric abscess CKD Patient Condition: Stable Procedures CXR Lung volumes are low. No focal airspace opacification, pleural effusion or pneumothorax is seen. The cardiomediastinal silhouette is mildly enlarged. Calcifications are seen within the aortic arch. The osseous structures demonstrate senescent changes. IMPRESSION: 1. Low lung volumes. 2. Mild cardiomegaly and aortic atherosclerosis. CT A/P IMPRESSION: 1. Right perinephric hematoma is identified, measuring approximately 12 cm in maximal dimension. Underlying right renal mass/neoplasm is not confidently excluded. Consider contrast enhanced CT for further evaluation, as clinically warranted. 2. There is chronic moderate atrophy of the left kidney. Indeterminate cystic- appearing foci are seen in the left kidney, incompletely evaluated without IV contrast. Again, contrast enhanced CT may be useful for further characterization. 3. Small to mild pericardial effusion is noted. 4. Coronary arterial and aortoiliac atherosclerotic calcifications are present. 5. Gallbladder is surgically absent. 6. Scattered pancreatic calcifications are seen, likely sequela of chronic pancreatitis. There is no CT evidence of acute pancreatitis. Indeterminate 17 mm cystic structure is seen in the pancreatic head - CT or MRI followup in 12 months is recommended to assess interval stability. 7. Scattered colonic diverticula are seen without diverticulitis. 8. Prostate is moderately enlarged - correlate with PSA level. RPTAT: HH .Alex Kaplan MD, Date Time Electronically viewed and signed by .Alex Kaplan MD, on RPTAT: HH .Juli Pope MD, Hx of Present Illness This is a 77-year-old male with a history of hypertension, type 2 diabetes, dyslipidemia, BPH, end-stage renal disease, awaiting initiation of dialysis. Patient presented to the ER complaining of right lower quadrant abdominal pain and generalized weakness. Pain started about 3 days ago and has been progressively getting worse. He denied chest pain, shortness of breath, nausea/ vomiting, hematemesis, dark stool or bright red blood per rectum. When he presented to the ER, he was hypotensive with blood pressure of 87/59, heart rate 110. Labs shows a hemoglobin of 7.7, WBC almost 12,000, BUN 81, creatinine 5.62, glucose 261, lactic acid 2.3, potassium 5.2. His first troponin is elevated at 0.709. EKG was no ST-T wave abnormalities. Hospital Course Evaluated and manage for renal failure and flank pain. Found to have a probable perinephric hematoma. Possibly ruptured cyst. Needs to be followed with repeat imaging soon. Seen by nephrology. Due to low urine output we try fluids. At this time care will be continued at [facility]. Patient is stable and fit for discharge, to telemetry status at [facility].. No hypoxia, no arrhythmias, no uremia. Patient awake alert he has agree to the plan of care. S- 04/10 anuric? + n/v. no fever/hematuria. poor po fluid intake later? admitted at ~1month ago [dced diuretics/hydrated]. no dyspnea 04/11 still has some right flank pain. No hematuria dyspnea fever. updated. O- vss PE no pallor/jvd reg ctab bs+; mild tender rlq/flank. no local warmth no edema; lt avf c/d/i A/P 1. Flank Pain -perinephric hematoma. Ruptured cyst? H/o Bx last June @ . Check h/h, transfuse prn; no lovenox. P imaging soon. Aspirin on hold. 2. Dm/Htn/CKD 3. BPH? 4. Oliguria- fluid challenge 5. False + troponin R Labs: H&H 7.10/04 Home Meds Reported Medications Hydralazine Hcl* (Hydralazine Hcl*) 25 Mg Tab, 25 MG PO BID Y for ELEVATED BLOOD PRESSURE, #120 TAB 04/09/17 Aspirin (Low Dose Aspirin) 81 Mg Tablet.dr, 81 MG PO DAILY, #30 TAB 04/09/17 Terazosin Hcl* (Terazosin Hcl*) 10 Mg Capsule, 10 MG PO HS, CAP 04/09/17 Finasteride* (Finasteride*) 5 Mg Tablet, 5 MG PO DAILY, TAB 04/09/17 Allopurinol* (Allopurinol*) 300 Mg Tablet, 150 MG PO DAILY, TAB 04/09/17 Calcitriol* (Rocaltrol*) 0.25 Mcg Capsule, 0.25 MCG PO DAILY, CAP 04/09/17 Cholecalciferol (Vitamin D3) 5,000 Unit Tablet, 5000 UNIT PO DAILY, TAB 04/09/17 Pravastatin Sodium* (Pravastatin Sodium*) 80 Mg Tablet, 80 MG PO HS, TAB 04/09/17 Glipizide* (Glipizide*) 5 Mg Tablet, 5 MG PO AC BREAKFAST, TAB 04/09/17 Amlodipine Besylate* (Norvasc*) 5 Mg Tablet, 5 MG PO DAILY, TAB 04/09/17 Follow-up Plan [facility] Primary Care Provider Not On Staff Doctor Time spent on discharge: > 30 minutes Pending Labs Laboratory Tests Test 04/10/17 20:08 04/10/17 23:00 04/11/17 07:49 04/11/17 08:45 Bedside Glucose 129mg/dL (70-220) 125mg/dL (70-220) Urine Random Creatinine 196.51mg/dl (20-370) Urine Random Sodium < 13mmol/L (30-90) Urine Total Protein 108.0mg/dl (0.0-11.9) White Blood Count 9.810^3/ul (4.8-10.8) Red Blood Count 2.4210^6/ul (4.70-6.10) Hemoglobin 7.3g/dl (14.0-18.0) Hematocrit 22.0% (42.0-52.0) Mean Corpuscular Volume 90.9fl (82.0-101.0) Mean Corpuscular Hemoglobin 30.2pg (29.0-33.0) Mean Corpuscular Hemoglobin Concent 33.2g/dl (32.0-37.0) Red Cell Distribution Width 15.8% (11.5-14.5) Platelet Count 66039^3/UL (140-415) Mean Platelet Volume 10.4fl (7.4-10.4) Neutrophils % 80.3% (39.0-77.0) Lymphocytes % 7.7% (15.0-51.0) Monocytes % 10.5% (0.0-11.0) Eosinophils % 0.8% (0.0-7.0) Basophils % 0.1% (0.0-2.0) Nucleated Red Blood Cells % 0.0/100WBC (0.0-0.0) Neutrophils # (Manual) 7.810^3/ul (1.7-7.5) Lymphocytes # 0.810^3/ul (0.8-2.9) Monocytes # 1.010^3/ul (0.3-0.9) Eosinophils # 0.110^3/ul (0.0-0.5) Basophils # 0.010^3/ul (0.0-0.1) Nucleated Red Blood Cells # 0.010^3/ul (0.0-0.0) Sodium Level 140mmol/L (135-144) Potassium Level 4.8mmol/L (3.5-5.1) Chloride Level 109mmol/L (97-110) Carbon Dioxide Level 18mmol/L (21-31) Anion Gap 18 (8-16) Blood Urea Nitrogen 106mg/dl (7-20) Creatinine 6.59mg/dl (0.61-1.24) Glucose Level 105mg/dl (70-220) Calcium Level 8.8mg/dl (8.4-10.2) Phosphorus Level 5.6mg/dl (2.5-4.9) Magnesium Level 1.9mg/dl (1.7-2.5) Random Cortisol 21.8ug/dl Test 04/11/17 12:05 04/11/17 18:05 Bedside Glucose 127mg/dL (70-220) 176mg/dL (70-220) CHAUNCEY WILBURN MD Apr 11, 2017 19:28
--- NOTE | 2017-04-11 19:31 | PDOCDIS ---
Discharge Instructions DIAGNOSIS Discharge Diagnosis Perinephric abscess CKD CONDITION Patient Condition: Stable HOME CARE INSTRUCTIONS: Special Diet: 1800 Alvin/No Added Salt ACTIVITY: Activity Restrictions: No Restrictions Slowly Increase Activity Avoid heavy lifting FOLLOW UP/APPOINTMENTS Follow-up Plan [facility] to CHAUNCEY Mcdermott MD Apr 11, 2017 19:31
[2017-04-11] MEDS ORDERED: ACET325T40 PO (19:33)
[2017-04-11] MEDS: ATORVASTATIN 40 MG TAB PO SCH (22:11)
[2017-04-11] MEDS: TERAZOSIN 5 MG CAP PO SCH (22:11)
[2017-04-11] MEDS: INSULIN GLARGINE [LANtus] 3 ML PEN SC SCH (22:13)
[2017-04-11] MEDS: ACCU-CHEK XX SCH (22:27)
[2017-04-12] VITALS (10 sets, daily range): BP systolic 142–162; BP diastolic 68–79; PULSE 96–115; RESP 18–20
[2017-04-12] MEDS: INSULIN ASPART [NOVOLOG] 3 ML PEN SC SCH ×3 (08:00→18:05)
[2017-04-12] MEDS: FINASTERIDE 5 MG TAB PO SCH (09:18)
[2017-04-12] MEDS: CALCITRIOL 0.25 MCG CAP PO SCH (09:18)
[2017-04-12] MEDS: CHOLECALCIFEROL 1,000 UNIT TAB PO SCH (09:18)
[2017-04-12] MEDS: AMLODIPINE 5 MG TAB PO SCH (09:18)
[2017-04-12] MEDS: ALLOPURINOL 300 MG TAB PO SCH (09:19)
--- NOTE | 2017-04-12 11:30 | PN ---
DATE: 04/12/2017 SUBJECTIVE DATA: The patient is stable. No events overnight. No fevers, chills, nausea, vomiting. No shortness of breath. OBJECTIVE DATA: VITAL SIGNS: Blood pressure 162/73, respirations 20, pulse 104, temperature 98.5. HEENT: Head is normocephalic. NECK: Supple. HEART: Regular rate. LUNGS: Diminished breath sounds base. ABDOMEN: Soft, nontender to palpation. No rebound or guarding. EXTREMITIES: Negative for clubbing, cyanosis. No edema. DERMATOLOGIC: No rashes. MUSCULOSKELETAL: No joint effusion. NEUROLOGIC: No change in exam. MEDICATIONS: Reviewed. LABORATORY DATA: Reviewed. No new labs. ASSESSMENT AND PLAN: 1. Nonoliguric acute kidney injury on top of chronic kidney disease stage 4. The patient's previous baseline creatinine around 4.5 mg/dL. I was able to contact the patient's primary asic verification engineer , who informed me of his baseline renal function. At this point, will continue current treatment plan. Would attempt to transfer patient back to [place] for continued care. 2. Sinus hyperkalemia, resolved. 3. Metabolic acidosis secondary to chronic kidney disease. Continue to monitor. 4. Anemia. The patient is status post-blood transfusion. Continue Epogen. 5. Perinephric hematoma. Underlying etiology is unclear. Continue to monitor. 6. Anemia. 7. Mineral bone disorder. Monitor calcium and phosphorus levels. 8. Lactic acidosis, resolved. 9. Elevated troponin. Likely due to demand ischemia. Continue to monitor. 10. Diabetes. Continue Accu-Cheks and sliding scale. Dictated By: Yousuf Wagoner DO /[email or web address]/austin /Document#: [id number]
[2017-04-12] MEDS: SOD CHLORIDE 0.9% 1,000 ML IV SCH (11:55)
--- NOTE | 2017-04-12 15:58 | PN ---
Date/Time of Note Date/Time of Note DATE: 04/12/17 TIME: 15:58 Assessment/Plan VTE Prophylaxis VTE Prophylaxis Intervention: contraindicated VTE Contraindication Reason: bleeding Lines/Catheters IV Catheter Type (from Nrsg): Peripheral IV Urinary Cath still in place: No Assessment/Plan Chief Complaint/Hosp Course Evaluated and manage for renal failure and flank pain. Found to have a probable perinephric hematoma. Possibly ruptured cyst. Needs to be followed with repeat imaging soon. Seen by nephrology. Due to low urine output we try fluids. At this time care will be continued at [place]. Patient is stable and fit for discharge, to telemetry status at [place].. No hypoxia, no arrhythmias, no uremia. Patient awake alert he has agree to the plan of care. S- 04/10 anuric? + n/v. no fever/hematuria. poor po fluid intake later? admitted at ~1month ago [dced diuretics/hydrated]. no dyspnea 04/11 still has some right flank pain. No hematuria dyspnea fever. updated. 04/12: Not sure why he's still here. Attempting to give report to Dr. Mc. O- vss PE no pallor/jvd reg ctab bs+; mild tender rlq/flank. no local warmth no edema; lt avf c/d/i A/P 1. Flank Pain -perinephric hematoma. Ruptured cyst? H/o Bx last June @ . Check h/h, transfuse prn; no lovenox. P imaging soon. Aspirin on hold. 2. Dm/Htn/CKD 3. BPH? 4. Oliguria- fluid challenge 5. False + troponin Labs: H&H 7.10/04 Problems: Exam/Review of Systems Vital Signs Vitals Vital Signs Date Time Temp Pulse Resp B/P Pulse Ox O2 Delivery O2 Flow Rate FiO2 04/12/17 15:36 98.2 98 20 145/79 96 04/10/17 05:55 Room Air Intake and Output 04/11/17 04/11/17 04/12/17 15:00 23:00 07:00 Intake Total 1150 ml 800 ml Output Total 825 ml 400 ml Balance 325 ml 400 ml Results Result Diagram: 04/11/17 0749 04/11/17 0749 Results 24 hrs Laboratory Tests Test 04/11/17 18:05 04/11/17 22:08 9/1/17 08:04 04/12/17 11:47 Bedside Glucose 176 161 139 184 Medications Medications Current Medications Allopurinol (Zyloprim) 150 mg DAILY PO Last administered on 04/12/17 09:19; Admin Dose 150 MG; Start 04/10/17 at 09:00 Amlodipine Besylate (Norvasc) 5 mg DAILY PO Last administered on 04/12/17 09:18 ; Admin Dose 5 MG; Start 04/10/17 at 09:00 Calcitriol (Rocaltrol) 0.25 mcg DAILY PO Last administered on 04/12/17 09:18; Admin Dose 0.25 MCG; Start 04/10/17 at 09:00 Cholecalciferol (Vitamin D) 5,000 unit DAILY PO Last administered on 04/12/17 09:18; Admin Dose 5,000 UNIT; Start 04/10/17 at 09:00 Finasteride (Proscar) 5 mg DAILY PO Last administered on 04/12/17 09:18; Admin Dose 5 MG; Start 04/09/17 at 20:30 Terazosin HCl (Hytrin) 10 mg HS PO Last administered on 04/11/17 22:11; Admin Dose 10 MG; Start 04/10/17 at 21:00 Atorvastatin Calcium (Lipitor) 40 mg HS PO Last administered on 04/11/17 22:11 ; Admin Dose 40 MG; Start 04/09/17 at 21:00 Hydralazine HCl (Apresoline) 10 mg Q4H PRN IV ELEVATED BLOOD PRESSURE; Start at 20:30 Ondansetron HCl (Zofran Inj) 4 mg Q6H PRN IV NAUSEA AND/OR VOMITING; Start at 20:30 Morphine Sulfate (morphine) 2 mg Q4H PRN IV PAIN; Start 04/09/17 at 20:30 Insulin Glargine (Lantus) 10 unit HS SC Last administered on 04/11/17 22:13; Admin Dose 10 UNIT; Start 04/09/17 at 21:00 Diagnostic Test (Pha) (Accu-Chek) 1 ea 02 XX Last administered on 04/10/17 02: 12; Admin Dose 1 EA; Start 04/10/17 at 02:00 Miscellaneous Information 1 ea NOTE XX ; Start 04/09/17 at 21:30 Glucose (Glutose) 15 gm Q15M PRN PO DECREASED GLUCOSE; Start 04/09/17 at 21:30 Glucose (Glutose) 22.5 gm Q15M PRN PO DECREASED GLUCOSE; Start 04/09/17 at 21: 30 Dextrose (D50w Syringe) 25 ml Q15M PRN IV DECREASED GLUCOSE; Start 04/09/17 at 21:30 Dextrose (D50w Syringe) 50 ml Q15M PRN IV DECREASED GLUCOSE; Start 04/09/17 at 21:30 Glucagon (Glucagen) 1 mg Q15M PRN IM DECREASED GLUCOSE; Start 04/09/17 at 21:30 Glucose (Glutose) 15 gm Q15M PRN BUCCAL DECREASED GLUCOSE; Start 04/09/17 at 21 :30 Acetaminophen 650 mg 650 mg Q4H PRN PO PAIN AND OR ELEVATED TEMP; Start at 13:30 Sodium Chloride (NS) 1,000 ml @ 50 mls/hr Q20H IV Last administered on t 16:54; Admin Dose 50 MLS/HR; Start 04/10/17 at 20:00 CHAUNCEY WILBURN MD Apr 12, 2017 15:58
== END 2017-04-12 20:30 | disposition short-term general hospital (02) | DRG 812 ==
LOC: E/R 11:24 → MS4 17:52
PROVIDERS: ADMIT Internal Medicine; ATTEND Internal Medicine
PROC: 30233N1 Transfusion of Nonautologous Red Blood Cells into Peripheral Vein, Percutaneous Approach (ICD-10-PCS; principal; 2017-04-10)
DX: D62 Acute posthemorrhagic anemia (principal); N17.9 Acute kidney failure, unspecified; E87.2 Acidosis; I24.8 Other forms of acute ischemic heart disease; I12.0 Hypertensive chronic kidney disease with stage 5 chronic kidney disease or end stage renal disease; D69.6 Thrombocytopenia, unspecified; N18.5 Chronic kidney disease, stage 5; K86.1 Other chronic pancreatitis; N28.89 Other specified disorders of kidney and ureter; E11.65 Type 2 diabetes mellitus with hyperglycemia; E87.6 Hypokalemia; N20.0 Calculus of kidney; E87.5 Hyperkalemia; N40.0 Benign prostatic hyperplasia without lower urinary tract symptoms
CPT/HCPCS: 36415; 36430; 71010; 74176; 80048; 80053; 81003; 82306; 82533; 82962; 83036; 83605; 83690; 83735; 84100; 84155; 84300; 84484; 85025; 86850; 86900; 86901; 86920; 87040; 87081; 87086; 93005; 96374; 96375; J1815; J1885; J2405; J7030; J7040; P9016; Q4081